=== PATIENT | male | born 2000 | race Hispanic/Latino ===

== ENCOUNTER 2021-06-15 01:41 | Inpatient (IN) | payer OTHER ==
[2021-06-15 02:14] LABS: Bacteria/HPF None Seen HPF (None Seen); Bilirubin Negative (Negative); Blood, Urine Negative (Negative); Clarity Clear (Clear); Glucose, Urine (Dipstick) Normal (Negative); Ketone, Urine Trace mg/dL (Negative); Leukocyte Negative Leu/uL (Negative); Nitrite Negative (Negative); Protein, Urine (Dipstick) 30 mg/dL (Neg-Trace); RBC/HPF 0-3 HPF (0-3); Specific Gravity, Urine 1.028 (1.002-1.036); Squamous Epithelial 0-3 HPF (0-3); Urobilinogen 3 mg/dL (Less than 2); WBC/HPF 0-3 HPF (0-3)
[2021-06-15 02:19] LABS: #Basophils 0.1 thou/uL (0.0-0.2); #Eosinphils 0.1 thou/uL (0.0-0.7); #Lymphocytes 3.5 thou/uL (1.20-3.40); #Monocytes 0.9 thou/uL (0.11-0.59); %Basophils 0.7 % (0.0-1.0); %Eosinophils 1.2 % (0.0-10.0); %Monocytes 8.2 % (0.0-4.0); %Neutrophils 56.9 % (31.0-61.0); Mean Corpuscular HGB CONC 33.4 g/dL (32.0-36.0); Mean Corpuscular Hemoglobin 28.5 pg (25.0-35.0); Mean Corpuscular Volume 85.3 fL (78.0-98.0); Mean Platelet Volume 8.9 fL (7.4-10.4); Platelet Count 247 thou/uL (130-400); RBC Distribution Width 12.9 % (11.5-14.5); Red Blood Cell (RBC) Count 5.98 mill/uL (4.00-5.20); White Blood Cell (WBC) Count 10.5 thou/uL (4.8-10.8)
[2021-06-15 02:39] LABS: Anion Gap 17 mmol/L (10-20); BUN (Urea Nitrogen) 11 mg/dL (8.9-20.6); Calc. Creatinine Clearance 0 mL/min (70-130); Calcium 10.1 mg/dL (7.8-10.44); Carbon Dioxide 23 mmol/L (22-29); Chloride 101 mmol/L (98-107); Glucose 101 mg/dL (70-105); Potassium 3.9 mmol/L (3.5-5.1); Sodium 137 mmol/L (136-145)
[2021-06-15] MEDS ORDERED: Piperacillin/Tazobactam 3.375 GM VIAL ONE ×2 (04:02→10:22)
[2021-06-15 05:34] VITALS: BMI 40.3
[2021-06-15] MEDS ORDERED: Morphine 4 MG/ML VIAL SLOW IVP PRN ×2 (05:37→12:41)
[2021-06-15 05:40] LABS: SARS-CoV-2 NAA Rapid Test Not Detected (NotDetected)
[2021-06-15] MEDS ORDERED: Ondansetron ODT 4 MG TAB SL PRN (05:45)
[2021-06-15] MEDS ORDERED: Ondansetron PF 4 MG/2 ML Vial IVP PRN ×2 (05:45→12:41)
[2021-06-15] MEDS ORDERED: Fentanyl 100 MCG/2 ML VIAL ONE ×4 (10:06→13:31)
[2021-06-15] MEDS ORDERED: HYDROmorphone 0.5 MG/0.5 ML SYRINGE ONE (10:06)
[2021-06-15] MEDS ORDERED: Bupivacaine 0.25% HCL 30 ML VIAL ONE (10:19)
[2021-06-15] MEDS ORDERED: Lidocaine 1% w/Epinephrine 1:100K 20 ML VIAL ONE (10:19)
[2021-06-15] MEDS ORDERED: Sodium Chloride 0.9% 100 ML ONE (10:22)
[2021-06-15] MEDS ORDERED: Midazolam HCl 2 mg/2 ml Vial ONE (10:34)
[2021-06-15] MEDS ORDERED: Dexamethasone 20 MG/5 ML VIAL ONE (10:49)
[2021-06-15] MEDS ORDERED: Rocuronium Bromide 10 MG/ML (10ML VIAL) ONE (10:49)
[2021-06-15] MEDS ORDERED: PROPOFOL 200 MG/20 ML VIAL ONE (10:49)
[2021-06-15] MEDS ORDERED: Ondansetron PF 4 MG/2 ML Vial ONE ×2 (10:49→13:17)
[2021-06-15] MEDS ORDERED: Lidocaine 1% PF 5 ML VIAL ONE (10:49)
[2021-06-15] MEDS ORDERED: Glycopyrrolate 0.2 MG/ML 5 ML SYRINGE ONE (10:49)
[2021-06-15] MEDS ORDERED: Morphine 2 MG/ML VIAL SLOW IVP PRN (12:41)
[2021-06-15] MEDS ORDERED: Dextrose 5% in Water 1,000 ML IV PRN (12:41)
[2021-06-15] MEDS ORDERED: Acetaminophen 650 MG Suppository PR PRN (12:41)
[2021-06-15] MEDS ORDERED: hydrALAZINE 20 MG/ML VIAL SLOW IVP PRN (12:41)
[2021-06-15] MEDS ORDERED: Promethazine HCl 25 MG/ML VIAL IM PRN ×2 (12:41→13:05)
[2021-06-15] MEDS ORDERED: Dextrose 50% Abboject 50 ML SYRINGE SLOW IVP PRN (12:41)
[2021-06-15] MEDS ORDERED: HYDROcodone/Acetaminophen 5/325 mg Tablet PO PRN ×2 (12:44)
[2021-06-15] MEDS ORDERED: Ondansetron HCl/PF 4 MG/2 ML Vial IVP PRN (13:05)
[2021-06-15] MEDS ORDERED: Promethazine HCl 25 MG/ML VIAL IVPB PRN (13:05)
[2021-06-15] MEDS ORDERED: PACU-Morphine 4MG/ML VIAL SLOW IVP PRN (13:05)
[2021-06-15] MEDS ORDERED: D5 1/2 NS w/20 mEq KCL 1,000 ML ONE (13:22)
[2021-06-15] MEDS: Piperacillin/Tazobactam 3.375 GM in Sodium Chloride 0.9% 100 ML IVPB SCH ×2 (15:40→20:54)
[2021-06-15] MEDS: D5 1/2 NS w/20 mEq KCL 1,000 ML IV SCH ×2 (15:42→20:55)
[2021-06-15] MEDS: Acetaminophen 325 MG TAB PO PRN (15:48)
[2021-06-15] MEDS ORDERED: Piperacillin/Tazobactam 3.375 GM in Sodium Chloride 0.9% 100 ML IVPB SCH (18:00)
[2021-06-15] MEDS: Famotidine 20 MG TAB PO SCH (20:54)
[2021-06-15] MEDS: Famotidine/PF 20 mg/2ml Vial SLOW IVP SCH (23:33)
[2021-06-16] MEDS: Acetaminophen 325 MG TAB PO PRN ×2 (00:22→19:30)
[2021-06-16] MEDS: D5 1/2 NS w/20 mEq KCL 1,000 ML IV SCH ×2 (05:04→14:00)
[2021-06-16] MEDS: Piperacillin/Tazobactam 3.375 GM in Sodium Chloride 0.9% 100 ML IVPB SCH ×3 (05:04→22:09)
[2021-06-16 05:37] LABS: #Lymphocytes 1.5 thou/uL (1.20-3.40); #Monocytes 1.1 thou/uL (0.11-0.59); #Neutrophils 9.6 thou/uL (1.40-6.50); %Basophils 0.2 % (0.0-1.0); %Eosinophils 0.1 % (0.0-10.0); %Lymphocytes 12.4 % (28.0-48.0); %Neutrophils 78.3 % (31.0-61.0); Hemoglobin 15.1 g/dL (14.0-18.0); Mean Corpuscular Hemoglobin 28.7 pg (25.0-35.0); Mean Platelet Volume 9.1 fL (7.4-10.4); Platelet Count 205 thou/uL (130-400); Red Blood Cell (RBC) Count 5.26 mill/uL (4.00-5.20); White Blood Cell (WBC) Count 12.3 thou/uL (4.8-10.8)
[2021-06-16 05:58] LABS: Anion Gap 15 mmol/L (10-20); BUN (Urea Nitrogen) 7 mg/dL (8.9-20.6); Calc. Creatinine Clearance 215 mL/min (70-130); Calcium 9.1 mg/dL (7.8-10.44); Carbon Dioxide 25 mmol/L (22-29); Chloride 103 mmol/L (98-107); Glucose 132 mg/dL (70-105); Sodium 139 mmol/L (136-145)
[2021-06-16] MEDS: Famotidine 20 MG TAB PO SCH ×2 (08:48→19:31)
[2021-06-16] MEDS: Enoxaparin Sodium 40 MG/0.4 ML SYRINGE SC SCH (08:49)
[2021-06-16] MEDS: Famotidine/PF 20 mg/2ml Vial SLOW IVP SCH ×2 (10:30→19:50)
[2021-06-17] MEDS: Enoxaparin Sodium 40 MG/0.4 ML SYRINGE SC SCH (08:08)
[2021-06-17] MEDS: Famotidine 20 MG TAB PO SCH ×2 (08:08→22:21)
[2021-06-17 09:38] LABS: #Eosinphils 0.1 thou/uL (0.0-0.7); #Lymphocytes 1.8 thou/uL (1.20-3.40); #Monocytes 0.6 thou/uL (0.11-0.59); #Neutrophils 6.7 thou/uL (1.40-6.50); %Basophils 0.2 % (0.0-1.0); %Eosinophils 0.7 % (0.0-10.0); %Lymphocytes 19.9 % (28.0-48.0); %Monocytes 6.3 % (0.0-4.0); %Neutrophils 72.9 % (31.0-61.0); Hemoglobin 14.5 g/dL (14.0-18.0); Mean Corpuscular HGB CONC 33.1 g/dL (32.0-36.0); Mean Corpuscular Hemoglobin 29.2 pg (25.0-35.0); Platelet Count 184 thou/uL (130-400); RBC Distribution Width 12.9 % (11.5-14.5); Red Blood Cell (RBC) Count 4.97 mill/uL (4.00-5.20); White Blood Cell (WBC) Count 9.2 thou/uL (4.8-10.8)
[2021-06-17] MEDS: Famotidine/PF 20 mg/2ml Vial SLOW IVP SCH ×2 (12:39→21:18)
[2021-06-17] MEDS: Piperacillin/Tazobactam 3.375 GM in Sodium Chloride 0.9% 100 ML IVPB SCH ×3 (15:08→22:21)
[2021-06-17] MEDS: D5 1/2 NS w/20 mEq KCL 1,000 ML IV SCH (21:17)
[2021-06-18] MEDS: Piperacillin/Tazobactam 3.375 GM in Sodium Chloride 0.9% 100 ML IVPB SCH (05:10)
[2021-06-18] MEDS: D5 1/2 NS w/20 mEq KCL 1,000 ML IV SCH (07:15)
[2021-06-18] MEDS: Enoxaparin Sodium 40 MG/0.4 ML SYRINGE SC SCH (09:54)
[2021-06-18] MEDS: Famotidine/PF 20 mg/2ml Vial SLOW IVP SCH (09:56)
[2021-06-18] MEDS: Famotidine 20 MG TAB PO SCH (10:04)
[2021-06-18 11:54] VITALS: BP 141/86; TEMP 98.1
== END 2021-06-18 14:01 | disposition home or self-care (01) | DRG 339 ==
LOC: ERS 01:41 → SURG A 03:43 → OBSVTOIN 12:41
PROVIDERS: ADMIT Surgery; ATTEND Surgery
PROC: 0DTJ4ZZ Resection of Appendix, Percutaneous Endoscopic Approach (ICD-10-PCS; principal; 2021-06-15)
DX: K35.33 Acute appendicitis with perforation, localized peritonitis, and gangrene, with abscess (principal); E78.00 Pure hypercholesterolemia, unspecified; Z20.822 Contact with and (suspected) exposure to COVID-19; E66.01 Morbid (severe) obesity due to excess calories; Z68.41 Body mass index [BMI] 40.0-44.9, adult; Z83.3 Family history of diabetes mellitus; Z82.49 Family history of ischemic heart disease and other diseases of the circulatory system; Z83.42 Family history of familial hypercholesterolemia
CPT/HCPCS: 36415; 74177; 80048; 81003; 81015; 85025; 88304; G0378; J1100; J1170; J1650; J2250; J2405; J2543; J2704; J3010; J3480; J3490; S0020; U0002